=== PATIENT | female | born 1975 | race Caucasian/White ===

== ENCOUNTER 2023-11-16 22:55 | Emergency (ER) | payer OTHER, SELFPAY ==
[2023-11-16 23:06] VITALS: BP 162/85
[2023-11-16 23:50] LABS: COVID-19 Antigen Negative (Negative)
[2023-11-17] MEDS: DELTASONE 50 MG PO (03:27)
[2023-11-17] MEDS: DUONEB 3 ML INH (03:27)
[2023-11-17] MEDS: VIBRAMYCIN 100 MG PO (03:27)
[2023-11-17] MEDS: PROTONIX 40 MG PO (03:27)
--- NOTE | 2023-11-17 03:36 | ED.GENMED ---
History of Present Illness
General
Chief Complaint: Breathing Problem
Source: patient
Exam Limitations: none
Time Seen by Provider: 11/17/23 03:01
Nursing documentation reviewed up to this point in time: agreed with
Travel History
Have you had any contact with someone who has COVID-19?: No
Do you have any symptoms of coronavirus? Fever > 100 degrees, chills, cough, shortness of breath, sore throat, loss of taste or smell, muscle aches, or headache?: Yes
Symptoms:: cough, shortness of breath
History of Present Illness
History of Present Illness:
This is a 48-year-old woman who has history of mild intermittent asthma generally associated with seasonal allergies versus rare exacerbations with URIs. Has never required maintenance inhalers and had previously been using albuterol inhaler but
admits to neglecting establishing with a local PCP since relocating to this area and currently takes no prescription medications.
She complains of URI symptoms that began over the weekend 4 to 5 days ago, her fianc� has had similar symptoms and she notes that her daughter had milder but similar symptoms a week or 2 ago. She complains of nasal congestion, dry hacking cough,
intermittent chills but she does not believe she has been running a fever. She began with bilateral ear pain 1-1/2 days ago that has progressively worsened throughout the day today and tonight she noticed scant yellowish discharge from her right
ear. She does have mild sore throat and tonight had a feeling that her throat was closing which resolved after drinking water. She had no vomiting, no diarrhea. Mild shortness of breath worse with cough.
She does note mild upper anterior chest discomfort that is only noted with cough and occasionally with deep breath.
No leg pain or swelling. No recent travel.
Home COVID test has been negative.
Has normal menstrual period currently. Denies risk of .
She is a lifelong non-smoker.
Past History
Past History
ED Past Medical History: Asthma and Other (Febrile seizure as an infant)
ED Past Surgical History: Cholecystectomy and
Social History
Tobacco: Non-smoker
Personal: Partner
Living: with family
Employment: Employed
Family History
Family History: Other (Noncontributory)
Phy Exam
Physical Exam
Physical Exam:
GENERAL: 48-year-old woman appears her stated age, awake and alert, appears in no acute distress. Mild nasal, stuffy voice is noted. Intermittent harsh bronchiolitic, nonproductive cough is noted. Respirations are otherwise easy and nonlabored.
EYE: pupils equal and reactive. anicteric
NECK: Supple, nontender, no meningismus, no significant adenopathy. No JVD.
ENT: posterior pharynx is without injection or edema, mild to moderate pearly postnasal drip is noted, oral mucosa is moist. Bilateral TMs are moderately red, dull, mildly bulging. There is scant cerumen and debris within the right ear canal but
no evidence of exudate nor blood and no definitive evidence of rupture of the TMs. Nares have moderately boggy turbinates with yellowish mucopus left greater than right.
CARDIAC: Regular rate and rhythm. no murmur.
LUNGS: no acute respiratory distress, scattered end expiratory wheezing bilaterally most noted with cough.
ABDOMEN: Soft, nondistended, without focal tenderness, normoactive BS.
NEUROLOGICAL: Alert and oriented x3, no focal neuro deficits.
SKIN: Warm and dry, normal color, skin intact. No rash.
MUSCULOSKELETAL: No C/C/E. peripheral pulses are full and equal b/l. No palpable tenderness.
PSYCH: Normal and appropriate interaction.
Scores
Heart Failure Risk
Heart Failure Risk Score: Not Applicable
Course
Orders/Labs/Results
Orders:
Orders
11/16/23 23:12
EKG [Electrocardiogram (*1)] Urgent
Reason for Study: Shortness of Breath
EKG- Treatment ONCE
11/16/23 23:19
COVID-19 Antigen Urgent
Source: Nasal Swab
Influenza A+B Rapid Molecular Urgent
LAYLA Source: Nasal Swab
Specimen Description:
11/17/23 03:15
Doxycycline [Vibramycin] 100 mg PO NOW STA
Ipratropium/Albuterol Sulfate [Duoneb] 3 ml INH R NOW ONE
Pantoprazole [Protonix] 40 mg PO NOW STA
Prednisone [Deltasone] 50 mg PO NOW STA
11/17/23 04:31
Ondansetron Orally Disint [Zofran Odt (Orally Disintegrating)] 4 mg PO NOW STA
11/17/23 04:32
Ondansetron Orally Disint [Zofran Odt (Orally Disintegrating)] 4 mg .ROUTE .STK-MED ONE
Vital Signs
Initial and Last Documented VS:
Initial Vital Signs
Temp Pulse Resp BP Pulse Ox
98.6 F 102 20 162/85 96
11/16/23 23:06 11/16/23 23:06 11/16/23 23:06 11/16/23 23:06 11/16/23 23:06
Last Documented Vital Signs
Temp Pulse Resp BP Pulse Ox
98.6 F 98 20 148/76 98
11/16/23 23:06 11/17/23 04:21 11/16/23 23:06 11/17/23 04:21 11/17/23 04:21
MDM/Problems Addressed
Differential Diagnosis Includes:
Patient presents with 4 to 5-day history of URI symptoms, cough, nasal congestion with onset of bilateral ear pain 1 and half days ago.
History of intermittent asthma, generally well-controlled.
Lifelong non-smoker, no recent travel, no leg pain or swelling, no prior history of thromboembolism nor risk factors for such.
Exam notable for bilateral otitis media, sinusitis and bilateral wheezing that I suspect is related to exacerbation of asthma.
Will treat otitis media with a course of doxycycline and initiated course of prednisone and will give DuoNeb nebulizer.
COVID and influenza testing are negative.
EKG shows mild sinus tachycardia otherwise unremarkable.
Sinus tachycardia has resolved since arrival to the ED. And as above patient has no risk factors for thromboembolism.
*Pulse Oximetry
Patient hypoxic: no
*EKG
Interpreted by ED Provider?: Yes
Interpretation: normal
Comparison EKG: no comparison EKG present
Rate: tachycardiac
Rhythm: sinus
[place]: normal axis
Interval: normal interval
QRS Pattern: normal QRS
Ischemia: no ischemia
*Critical Care Note
Total Time (30-74mins, 75-104mins- exclusive of procedures): Not Applicable
Update Note
Update Note:
Patient reported mild nausea, mild lightheadedness after nebulizer treatment which has since resolved. Tolerating oral fluids as well as crackers.
Marked improvement in wheezing, no further shortness of breath, and improvement in cough as well.
Will discharge to home with a course of doxycycline, short course of prednisone, albuterol inhaler.
Patient reports history of epigastric discomfort with prednisone in the past thus have added a short course of Protonix for GI protection. She does take Advil on a fairly often basis without GI distress.
Discussed importance of holding off on NSAIDs while taking prednisone. She can take Tylenol as needed for discomfort.
She has been referred to our family practice residency clinic for follow-up.
Return precautions discussed.
ED Attending Note
-
Portions of this chart may have been created with voice recognition software.� Occasional wrong word or��sound alike� substitutions may have occurred due to the inherent limitations of voice recognition software.
Discharge Plan
Departure
Patient Disposition: Home (Routine Discharge)
Date of Disposition: 11/17/23
Time of Disposition: 05:30
Patient with high blood pressure during this ER visit?: Yes
Condition: Good
Discharge Problem:
Acute otitis media, bilateral, Acute asthma exacerbation
Instructions: Asthma, Adult (DC), Ear Infections (Otitis Media) in Adults (DC), BLOOD PRESSURE
Prescriptions:
New
doxycycline monohydrate 100 mg capsule
100 mg PO BID Qty: 20 1RF
prednisone 20 mg tablet
40 mg PO DAILY Qty: 10 0RF
pantoprazole [Protonix] 40 mg tablet,delayed release (DR/EC)
40 mg PO DAILY Qty: 14 0RF
albuterol sulfate [ProAir HFA] 90 mcg/actuation Hfa Aerosol Inhaler
2 puff INHALATION Q4HPRN PRN (Reason: shortness of breath/cough) Qty: 90 0RF
Rx Instructions:
Dispense with spacer
Referrals:
[facility] [Outside] - Call in 1-3 days for appt
NONE,* [Family Provider] -
Interventions
Interventions:
*Risk Screen - Suicide Last Done: 11/17/23 04:02
*General Assessment Last Done: 11/17/23 04:02
*Neglect/Abuse Screening Last Done: 11/17/23 04:02
ED- Fall Risk Assessment Last Done: 11/17/23 04:02
*Nursing Disposition Last Done: 11/17/23 05:39
ED- Cardiac Assessment Last Done: 11/17/23 04:02
ED- Pulmonary Assessment Last Done: 11/17/23 04:00
Discharge Date and Time
Discharge Date/Time: 11/17/23 05:39
[2023-11-17 04:21] VITALS: BP 148/76
[2023-11-17] MEDS: ZOFRAN ODT (ORALLY DISINTEGRATING) 4 MG PO (04:33)
== END 2023-11-17 05:39 | disposition home or self-care (01) ==
LOC: EMR 22:55
PROVIDERS: EMERGENCY PHYSICIAN Emergency Medicine
DX: H66.93 Otitis media, unspecified, bilateral (principal); J45.21 Mild intermittent asthma with (acute) exacerbation
CPT/HCPCS: 99284; 94640; 87502; 87811; 93005

== ENCOUNTER 2024-07-17 06:18 | Day surgery (SDC) | payer OTHER, SELFPAY ==
[2024-07-17 08:39] VITALS: BMI 47.3
[2024-07-17 08:41] VITALS: BMI 47.3
[2024-07-17 08:42] VITALS: BP 154/88
[2024-07-17 10:26] VITALS: BP 121/54
[2024-07-17 10:30] VITALS: BP 128/59
[2024-07-17 10:45] VITALS: BP 121/39
== END 2024-07-17 10:55 | disposition home or self-care (01) ==
LOC: SDS 06:18
PROVIDERS: Internal Medicine; ATTENDING PHYSICIAN Student in an Organized Health Care Education/Training Program
PROC: 0DBF8ZX Excision of Right Large Intestine, Via Natural or Artificial Opening Endoscopic, Diagnostic (ICD-10-PCS; 2024-07-17)
PROC: 0DBG8ZX Excision of Left Large Intestine, Via Natural or Artificial Opening Endoscopic, Diagnostic (ICD-10-PCS; 2024-07-17)
DX: R10.84 Generalized abdominal pain (principal); R19.7 Diarrhea, unspecified
CPT/HCPCS: 45380; 88305

== ENCOUNTER → 2024-08-01 13:36 | Outpatient (REF) | payer OTHER, SELFPAY | LOC: HWRAD 13:36 | PROVIDERS: ATTENDING PHYSICIAN Student in an Organized Health Care Education/Training Program | DX: N92.0 Excessive and frequent menstruation with regular cycle (principal); Z12.31 Encounter for screening mammogram for malignant neoplasm of breast | CPT/HCPCS: 76830; 76856; 77063; 77067 ==

== ENCOUNTER → 2024-12-21 12:08 | Outpatient (REF) | payer OTHER, SELFPAY | LOC: RAD 12:08 | DX: R10.9 Unspecified abdominal pain (principal) | CPT/HCPCS: 74177; Q9967 ==

== ENCOUNTER → 2025-01-01 10:29 | Outpatient (REF) | payer OTHER, SELFPAY | LOC: HWRAD 10:29 | DX: R10.9 Unspecified abdominal pain (principal) | CPT/HCPCS: 76830; 76856 ==